=== PATIENT | male | born 1960 | race Caucasian/White ===

== ENCOUNTER 2023-04-30 13:25 | Outpatient (OUT) | payer OTHER, SELFPAY ==
--- NOTE | 2023-04-30 13:30 | CT_ITS ---
[address] [address] Patient Name: SIMONA BALTAZAR MRN: [id number] date: 1960 Sex: M Assigned Patient Location: CT Current Patient Location: CT Accession/Order Number: [id number] Exam Date: 04/30/2023 13:50 Report Date: 04/30/2023 15:57 At the request of: INES ORTIZ Procedure: CT foot RT wo con EXAMINATION: CT foot RT wo con HISTORY: Hallux Rigidus, Right Foot M20.21 ; right first toe pain, no known injury COMPARISON: XR foot right 04/10/2023 TECHNIQUE: Multi-planar CT images were created without IV contrast. Dose reduction techniques were achieved by using automated exposure control and/or adjustment of mA and/or kV according to patient size and/or use of iterative reconstruction technique. FINDINGS: BONES: Marked narrowing of the first metatarsophalangeal joints with near [id number] contact, prominent periarticular degenerative osteophytes, and numerous subchondral cysts. Small corticated ossification distal to the lateral malleolus and several distal to the medial malleolus consistent with sequela of remote injuries. SOFT TISSUES: Scattered mild edema. EFFUSION: None visible. OTHER: Negative. IMPRESSION: 1. Marked degenerative change of first metatarsophalangeal joint favoring osteoarthritis. 2. Scattered small ossifications favoring heterotopic bone formation from remote injuries. Electronically authenticated by: MADALYN CLEANING Date: 04/30/2023 15:57
--- NOTE | 2023-04-30 14:17 | ECG_ITS ---
[facility] Test Date: 2023-04-30 Pat Name: Kushal Oneil Department: Room: - Gender: Male [employer]: : 1960 Requested By: INES ORTIZ Order Number: [id number] Reading MD: MOY LALA Measurements Intervals [place] Rate: 45 P: 60 AL: 216 QRS: 52 QRSD: 108 T: 13 QT: 453 QTc: 396 Interpretive Statements SINUS BRADYCARDIA WITH FIRST DEGREE AV BLOCK WITH OCCASIONAL SUPRAVENTRICULAR PREMATURE COMPLEXES MODERATE INTRAVENTRICULAR CONDUCTION DELAY [105+ ms QRS DURATION, 80+ ms Q/S IN V1/V2, NO Q AND 60+ ms R IN I/aVL/V5/V6] No previous ECG available for comparison Electronically Signed On 05-01-2023 6:38:46 EDT by MOY LALA
--- NOTE | 2023-04-30 14:40 | XR_ITS ---
[address] [address] Patient Name: SIMONA BALTAZAR MRN: [id number] date: 1960 Sex: M Assigned Patient Location: [facility] Current Patient Location: CT Accession/Order Number: [id number] Exam Date: 04/30/2023 15:13 Report Date: 04/30/2023 15:29 At the request of: INES ORTIZ Procedure: XR chest 2V EXAM: XR chest 2V HISTORY: pre op exam/ CAD COMPARISON: None. TECHNIQUE: PA and lateral views of the chest. FINDINGS: The cardiomediastinal silhouette is enlarged. No focal consolidation is identified. There is no pneumothorax. No pleural effusion is noted. The osseous structures are intact. IMPRESSION: Cardiomegaly without overt failure. Electronically authenticated by: NATASHA ALMONTE Date: 04/30/2023 15:29
--- NOTE | 2023-04-30 15:10 | PM.PRESUREVA ---
History of Present Illness History of Present Illness Chief complaint: Hallux valgus right foot CT<PRE TESTING Narrative: Patient presents for preadmission testing. Please see HPI from Dr. Blue dated 04/22/2023. Review of Systems ROS Narrative Please see ROS from Dr. Blue dated 04/22/2023. [facility] Medical History (Updated 04/30/23 @ 14:43 by Malika Andrews NP) Surgical History (Updated 04/30/23 @ 14:43 by Malika Andrews NP) (12/21/18) Family History (Updated 04/30/23 @ 14:43 by Malika Andrews NP) Other CHF (congestive heart failure) Family history of diabetes mellitus Family history of hypertension Family history of lung cancer Family history of myocardial infarction Family history of stroke Social History (Updated 04/30/23 @ 14:35 by Malika Andrews NP) Within the past year, how often did you have a drink containing alcohol: 2-3 times a week Smoking status: Never smoker Previous occupational history: Engraver [employer] Highest level of school completed/degree received: high school graduate Meds Home Medications and Allergies Home Medications Medication Instructions Recorded Confirmed Type amlodipine 10 mg tablet 10 mg PO QDAY 04/30/23 04/30/23 History aspirin 81 mg tablet,delayed 81 mg PO QDAY 04/30/23 04/30/23 History release atorvastatin 20 mg tablet 20 mg PO QDAY 04/30/23 04/30/23 History citalopram 20 mg tablet 20 mg PO QDAY 04/30/23 04/30/23 History ezetimibe 10 mg tablet 10 mg PO QDAY 04/30/23 04/30/23 History metformin 500 mg tablet 500 mg PO QDAY 04/30/23 04/30/23 History metformin 500 mg tablet,extended 500 mg PO QDAY 04/30/23 04/30/23 History release 24 hr metoprolol succinate 100 mg 100 mg PO QDAY 04/30/23 04/30/23 History tablet,extended release 24 hr omeprazole 40 mg capsule,delayed 40 mg PO QDAY 04/30/23 04/30/23 History release Allergies Allergy/AdvReac Type Severity Reaction Status Date / Time No Known Drug Allergies Allergy Verified 04/30/23 14:33 Exam Narrative Exam Narrative: Constitutional: Awake, alert, comfortable, well-appearing, nontoxic, interactive, vital signs as charted Head: Normocephalic, atraumatic Neck: Supple, normal appearance, normal range of motion, no meningeal signs, no lymphadenopathy Respiratory: No respiratory distress, breath sounds clear Cardiovascular: Regular rate and rhythm, strong and regular heart tones Psychiatric: Oriented ?3, normal affect Assessment and Plan Assessment and Plan (1) Hallux rigidus: (2) Hallux valgus: Plan Right 1st metatarsal phalangeal joint fusion with bone graft and soft tissue balancing as needed scheduled with Dr. Blue 05/15/2023.
[2023-04-30 16:12] LABS: Basophils Absolute Auto 0.1 10^3/uL (0.0-0.1); Eosinophils Absolute Auto 0.5 10^3/uL (0.0-0.7); Eosinophils Percent Auto 6.2 % (0.9-7.0); Hematocrit 41.5 % (42.0-54.0); Hemoglobin 13.9 g/dL (14.0-18.0); Immature Granulocytes Abs Auto 0.02 10^3/uL (0.00-0.03); Immature Granulocytes Pct Auto 0.3 % (0.0-0.5); Lymphocytes Absolute Auto 2.1 10^3/uL (1.2-3.8); Lymphocytes Percent Auto 27.6 % (20.5-60.0); Mean Corpuscular HGB Conc 33.5 g/dL (29.9-35.2); Mean Corpuscular Hemoglobin 30.1 pg (25.9-34.0); Mean Corpuscular Volume 89.8 fL (80.0-94.0); Mean Platelet Volume 11.1 fL (9.5-13.5); Monocytes Absolute Auto 0.9 10^3/uL (0.3-0.8); Monocytes Percent Auto 11.5 % (1.7-12.0); Neutrophils Absolute Auto 4.1 10^3/uL (1.4-6.5); Neutrophils Percent Auto 53.4 % (43.0-75.0); Platelet Count 233 10^3/uL (150-450); Red Blood Count 4.62 10^6/uL (4.70-6.10); Red Cell Distribution Width 12.6 % (11.0-15.0); White Blood Count 7.7 10^3/uL (4.0-11.0)
[2023-04-30 16:24] LABS: INR 1.33; Partial Thromboplastin Time 27.7 sec (22.3-36.2); Prothrombin Time 13.9 sec (9.0-11.6)
[2023-04-30 16:54] LABS: BUN Creatinine Ratio 19.5; Calcium 8.8 mg/dL (8.5-10.1); Chloride 103 mmol/L (98-107); Estimated GFR (African America >60 (>=60); Estimated GFR (Non-African Ame >60 (>=60); Glucose 104 mg/dL (74-106); Sodium 140 mmol/L (136-145)
== END 2023-04-30 13:26 ==
LOC: CT 13:25
PROVIDERS: Podiatrist Foot & Ankle Surgery; PCP Family Medicine
DX: Z01.812 Encounter for preprocedural laboratory examination (principal); Z01.818 Encounter for other preprocedural examination; Z01.810 Encounter for preprocedural cardiovascular examination; Z01.811 Encounter for preprocedural respiratory examination; M20.21 Hallux rigidus, right foot; M20.11 Hallux valgus (acquired), right foot; I10 Essential (primary) hypertension; E11.9 Type 2 diabetes mellitus without complications; I25.10 Atherosclerotic heart disease of native coronary artery without angina pectoris; Z79.899 Other long term (current) drug therapy; Z79.82 Long term (current) use of aspirin
CPT/HCPCS: 36415; 71046; 73700; 80048; 85025; 85610; 85730; 93005; G0463

== ENCOUNTER 2023-05-12 14:52 | Outpatient (RCR) | payer OTHER, SELFPAY | END 2023-05-13 11:59 | disposition home or self-care (01) | LOC: PT 14:52 | PROVIDERS: PCP Family Medicine; Visit Provider Physician Assistant | DX: M20.21 Hallux rigidus, right foot (principal); M20.11 Hallux valgus (acquired), right foot; Z98.890 Other specified postprocedural states ==

== ENCOUNTER 2023-05-15 07:12 | Day surgery (SDC) | payer OTHER, SELFPAY ==
[2023-04-30 14:35] VITALS: BP 111/63; PULSE 50; RESP 14; TEMP 36.5; O2SAT 97; BMI 30.2
[2023-05-15] VITALS (8 sets, daily range): BP systolic 119–129; BP diastolic 60–79; PULSE 52–68; RESP 12–18; TEMP 36.1–36.2; O2SAT 94–98; BMI 30.4
--- NOTE | 2023-05-15 | XR_ITS ---
[address] [address] Patient Name: SIMONA BALTAZAR MRN: [id number] date: 1960 Sex: M Assigned Patient Location: [facility] Current Patient Location: [facility] Accession/Order Number: [id number] Exam Date: 05/15/2023 10:44 Report Date: 05/15/2023 17:19 At the request of: INES ORTIZ Procedure: XR foot RT 2V PROCEDURE: XR foot RT 2V COMPARISON: None. HISTORY: RT 1ST MPJ FUSION FINDINGS: BONES:Fusion of the first metatarsal-phalangeal joint with a dorsal plate and multiple screws. Severe underlying degenerative changes. Instability of the ankle joint with asymmetric widening of the lateral and posterior tibiotalar joint with stress SOFT TISSUES:Negative. No visible soft tissue swelling. EFFUSION:None visible. OTHER: Negative. IMPRESSION: Tibiotalar joint instability Stable fusion first metatarsal-phalangeal joint Electronically authenticated by: ARIELLE MAHONEY Date: 05/15/2023 17:19
[2023-05-15 07:22] LABS: Basophils Absolute Auto 0.1 10^3/uL (0.0-0.1); Basophils Percent Auto 1.1 % (0.2-2.0); Eosinophils Absolute Auto 0.6 10^3/uL (0.0-0.7); Eosinophils Percent Auto 6.8 % (0.9-7.0); Hematocrit 42.7 % (42.0-54.0); Hemoglobin 14.3 g/dL (14.0-18.0); Immature Granulocytes Abs Auto 0.01 10^3/uL (0.00-0.03); Immature Granulocytes Pct Auto 0.1 % (0.0-0.5); Lymphocytes Absolute Auto 2.1 10^3/uL (1.2-3.8); Lymphocytes Percent Auto 24.7 % (20.5-60.0); Mean Corpuscular HGB Conc 33.5 g/dL (29.9-35.2); Mean Corpuscular Hemoglobin 29.9 pg (25.9-34.0); Mean Corpuscular Volume 89.1 fL (80.0-94.0); Mean Platelet Volume 10.6 fL (9.5-13.5); Monocytes Absolute Auto 0.9 10^3/uL (0.3-0.8); Monocytes Percent Auto 10.7 % (1.7-12.0); Neutrophils Absolute Auto 4.8 10^3/uL (1.4-6.5); Neutrophils Percent Auto 56.6 % (43.0-75.0); Platelet Count 233 10^3/uL (150-450); Red Blood Count 4.79 10^6/uL (4.70-6.10); Red Cell Distribution Width 12.7 % (11.0-15.0); White Blood Count 8.5 10^3/uL (4.0-11.0)
[2023-05-15] MEDS: LACTATED RINGER'S SOLUTION 1,000 ML 50 ML IV (07:46)
[2023-05-15 07:47] LABS: Glucometer 137 mg/dL (74-106)
--- NOTE | 2023-05-15 08:28 | PC.NURSE ---
PATIENT WAS ATTACHED TO MONITORS ,TIME OUT PERFORMED AT 808 2MG VERSED GIVEN . ADUCTOR AND SCIATIC NERVE BLOCK PERFORMED.PATIENT TOLERATED WELL.
--- NOTE | 2023-05-15 08:46 | PC.NURSE ---
TIME OUT FOR BLOCK STARTED AY 808 AND ENDED AT 820
[2023-05-15] MEDS: CEFAZOLIN SODIUM/DEXTROSE,ISO 2 GM/50 ML PIGGYBACK IV (09:59)
[2023-05-15 12:30] LABS: Glucometer 138 mg/dL (74-106)
--- NOTE | 2023-05-15 12:35 | XR_ITS ---
The [address] [address] Patient Name: SIMONA BALTAZAR MRN: [id number] date: 1960 Sex: M Assigned Patient Location: [facility] Current Patient Location: Accession/Order Number: [id number] Exam Date: 05/15/2023 12:29 Report Date: 05/15/2023 14:02 At the request of: SEDRICK RICO Procedure: XR foot RT min 3V STUDY: XR foot RT min 3V, [id number] HISTORY: post-op COMPARISON: Right foot x-rays 04/10/2023. FINDINGS: Overlying cast material obscures fine bony detail. Status post first metatarsophalangeal joint arthrodesis. The fixation hardware is intact. There are expected postsurgical changes to the soft tissues surrounding the first metatarsophalangeal joint. IMPRESSION: Status post first metatarsophalangeal joint arthrodesis. Electronically authenticated by: ILDEFONSO ROBERT Date: 05/15/2023 14:02
--- NOTE | 2023-05-15 12:47 | P.ORON_ITS ---
Brief Operative Note Date of procedure: 05/15/23 Pre-op diagnosis: right hallux valgus and rigidus, possible AVN Post-op diagnosis: same Procedure: procedures performed: Right 1st metatarsal phalangeal joint fusion with application of short leg splint and intraoperative fluoroscopy examination PROCEDURE IN DETAIL: Patient was identified in pre op and consent was reviewed. Correct side and site were identified and marked. Pre-op antibiotics were started. Patient was brought to OR suite and place on table in a supine position. General anesthesia was administered. A tourniquet was applied. Operative extremity was prepped and draped in usual sterile fashion. Formal time-out was performed and the foot/ankle were exsanguinated and tourniquet inflated. Incision created over dorsal aspect of the 1st MPJ. Bleeders coagulated. EHL protected throughout the procedure. Capsulotomy performed and McGlammry elevator inserted into 1st MPJ. several loose osteophytes were removed with a rongeur .Guide Pin place in 1st metatarsal head. Conical reamers used on 1st metatarsal head to remove cartilage and subchondral bone. It was noted that there was discolored bone consistent with avascular necrosis of the distal most aspect of the 1st metatarsal head. Further reaming was able to excise any questionable bone which also included multiple blood-filled cysts. Reaming of the 1st metatarsal head was performed until bone had a normal appearance. Guide pin removed. Conical reamers used on proximal phalanx and bone was within normal limits. 2.0 mm drill used to on each side of the joint. The site was irrigated. 1 cc of SPARC allograft was placed into the joint space. A stab incision was placed on the medial aspect of the hallux and blunt dissection down to the proximal phalanx base was performed. A guide wire was then used to pin the MPJ in a rectus position under fluoroscopic guidance. Position was checked both on the table and under fluoroscopy. A saw was used to contour the dorsal aspect of the 1st metatarsal and proximal phalanx to accommodate plate fixation. A 3.[address] was place over the fusion site and temporarily fixed. Then blast furnace operator holes were drilled for locking 3.5 mm screws which were measured and placed according to the manufactor's standard directions. Again position was checked under fluoroscopy as well as on the table. Temporary fixation was removed and additional screws were placed. A 4.0 mm cannulated headed screw was inserted over the previously placed guide wire accordingly. Again position of the great toe and hardware placement were checked on the table and under fluoroscopy. The surgical site was irrigated with copious amounts of sterile saline. An additional 1cc of sparc allograft was packed around the fusion site. The incision was then closed in layers. The tourniquet was deflated and a prompt hyperemic response was noted. A dry sterile dressing consisting of Xeroform on the incisions followed by 4 x 4 gauze, ABDs, and Kerlix were applied. Multiple layers of cast padding were then applied to ensure all bony prominences were well-padded. A plaster posterior splint was then applied which was held in place by James wraps. Capillary refill time to all digits was evaluated and had appropriate response. POSTOPERATIVE PLAN: Discharge home under family's care Post op instructions provided verbally and written prescription(s) were placed in chart NWB operative foot/ankle x1 wks Follow-up in 1 week FINDINGS: bone of the distal 1st metatarsal head was avascular and discolored with mixed densities. Reaming achieved excision of all questionable bone which included multiple blood-filled cysts. All remaining bone appeared to be healthy and within normal limits Implants: Medline plate/screws; Sparc allograft Anesthesia: other (Gen. and regional) Surgeon: [employer] Teacher: Antwon Adorno Estimated blood loss (mL): 10 Condition: stable Disposition: PACU Preoperative Details Reason for procedure: patient is a 63-year-old male who presented to my office relating to pain and dysfunction and gradual deformity of his great toe which has slowly increased over the last several years. Pain and dysfunction were now affecting activities of daily living and recreation. He has failed nonsurgical treatment with OTC pain medicine, shoe modification and activity modification. X-rays revealed mild bunion deformity with severe arthrosis. CT scan was also obtained showing mixed sclerotic and cystic bone of the 1st metatarsal head which was concerning for avascular necrosis, in addition to the severe arthritic changes to the joint, however there was no evidence of collapse of the 1st metatarsal head. we discussed the potential risks and benefits of surgical treatment which the patient wished to pursue
--- NOTE | 2023-05-15 12:56 | PC.NURSE ---
right toes pink and warm
--- NOTE | 2023-05-15 13:00 | PC.NURSE ---
right toes pink and warm and numb to touch; extremity elevated and ice placed behind knee
--- NOTE | 2023-05-15 13:04 | PC.NURSE ---
right toes pink and warm and remain numb
--- NOTE | 2023-05-15 13:06 | PC.NURSE ---
right toes pink and warm and remain numb
== END 2023-05-15 13:12 | disposition home or self-care (01) ==
PROVIDERS: PCP Family Medicine; Visit Provider Podiatrist Foot & Ankle Surgery
PROC: (CPT 20900; principal; 2023-05-15 09:10)
DX: M20.11 Hallux valgus (acquired), right foot (principal); M20.21 Hallux rigidus, right foot; I10 Essential (primary) hypertension; E11.9 Type 2 diabetes mellitus without complications; I25.10 Atherosclerotic heart disease of native coronary artery without angina pectoris; M87.874 Other osteonecrosis, right foot; Z79.82 Long term (current) use of aspirin; Z79.84 Long term (current) use of oral hypoglycemic drugs; Z79.899 Other long term (current) drug therapy; E78.00 Pure hypercholesterolemia, unspecified; K21.9 Gastro-esophageal reflux disease without esophagitis; M85.60 Other cyst of bone, unspecified site
CPT/HCPCS: 20900; 28750; 36415; 64445; 73620; 73630; 76000; 76942; 82948; 85025; C1713; J2704

== ENCOUNTER 2023-06-05 13:03 | Outpatient (OUT) | payer OTHER, SELFPAY ==
--- NOTE | 2023-06-05 13:02 | XR_ITS ---
The [address] [address] Patient Name: SIMONA BALTAZAR MRN: [id number] date: 1960 Sex: M Assigned Patient Location: [facility] Current Patient Location: Accession/Order Number: [id number] Exam Date: 06/05/2023 13:01 Report Date: 06/06/2023 07:27 At the request of: KAT SEVILLA Procedure: XR foot RT min 3V PROCEDURE: XR foot RT min 3V COMPARISON: 05/15/2023 HISTORY: RIGHT FOOT PAIN FINDINGS: BONES:Stable fusion first metatarsal-phalangeal joint with a dorsal plate and multiple screws. There is heterogeneous lytic appearance along the lateral base of the first proximal phalanx possibly lytic phase of healing but indeterminate. No acute fracture or dislocation. SOFT TISSUES:Negative. No visible soft tissue swelling. EFFUSION:None visible. OTHER: Negative. XR/XR foot RT min 3V IMPRESSION: First metatarsal-phalangeal joint fusion with lytic changes to the base of the first proximal phalanx Electronically authenticated by: ARIELLE MAHONEY Date: 06/06/2023 07:27
== END 2023-06-05 13:04 | disposition home or self-care (01) ==
LOC: RAD 13:03
PROVIDERS: PCP Family Medicine; Visit Provider Physician Assistant
DX: M20.21 Hallux rigidus, right foot (principal)
CPT/HCPCS: 73630

== ENCOUNTER 2023-06-25 14:50 | Outpatient (OUT) | payer OTHER, SELFPAY ==
--- NOTE | 2023-06-25 14:53 | XR_ITS ---
The [address] [address] Patient Name: SIMONA BALTAZAR MRN: [id number] date: 1960 Sex: M Assigned Patient Location: [facility] Current Patient Location: [facility] Accession/Order Number: [id number] Exam Date: 06/25/2023 14:53 Report Date: 06/25/2023 15:16 At the request of: INES ORTIZ Procedure: XR foot RT min 3V PROCEDURE: XR foot RT min 3V DATE: 06/25/2023 1:53 PM CDT COMPARISONS: 06/05/2023 CLINICAL INDICATION: RIGHT FOOT PAIN FINDINGS: There is no evidence of fractures or other acute osseous abnormalities. Postop fusion of the first metatarsal phalangeal joint is again identified. Surgical hardware is intact, stable from previous exam Mild interphalangeal degenerative changes again identified, stable. XR/XR foot RT min 3V IMPRESSION: Right foot radiographs show no evidence of acute abnormalities. First metatarsal phalangeal postop changes are stable. Electronically authenticated by: LUIS ALBERTO NEW Date: 06/25/2023 15:16
== END 2023-06-25 14:51 | disposition home or self-care (01) ==
LOC: RAD 14:50
PROVIDERS: PCP Family Medicine; Visit Provider Podiatrist Foot & Ankle Surgery
DX: M20.21 Hallux rigidus, right foot (principal)
CPT/HCPCS: 73630

== ENCOUNTER 2023-08-05 14:44 | Outpatient (OUT) | payer OTHER, SELFPAY ==
--- NOTE | 2023-08-05 | XR_ITS ---
The [address] [address] Patient Name: SIMONA BALTAZAR MRN: [id number] date: 1960 Sex: M Assigned Patient Location: [facility] Current Patient Location: [facility] Accession/Order Number: [id number] Exam Date: 08/05/2023 15:47 Report Date: 08/06/2023 09:10 At the request of: KAT SEVILLA Procedure: XR foot RT min 3V PROCEDURE: XR foot RT min 3V HISTORY: RIGHT FOOT PAIN COMPARISON: XR foot right 06/25/2023 FINDINGS: BONES:Mechanical fusion of the first metatarsophalangeal joint via dorsal plate and screws. No hardware fracture or loosening. No bone fracture or dislocation. Stable tiny ossifications lateral to the base of the fifth metatarsal; likely sequela of remote injury. SOFT TISSUES:Mild distal dorsal soft tissue swelling. EFFUSION:None visible. OTHER: Negative. XR/XR foot RT min 3V IMPRESSION: 1. Stable surgical changes without evidence of hardware failure or change in alignment. 2. No appreciable acute abnormality. Electronically authenticated by: MADALYN CLEANING Date: 08/06/2023 09:10
== END 2023-08-05 14:45 | disposition home or self-care (01) ==
LOC: RAD 14:44
PROVIDERS: PCP Family Medicine; Visit Provider Physician Assistant
DX: M20.21 Hallux rigidus, right foot (principal)
CPT/HCPCS: 73630

== ENCOUNTER 2023-11-18 14:56 | Outpatient (OUT) | payer OTHER, SELFPAY ==
--- NOTE | 2023-11-18 | XR_ITS ---
[address] [address] Patient Name: SIMONA BALTAZAR MRN: [id number] date: 1960 Sex: M Assigned Patient Location: [facility] Current Patient Location: Accession/Order Number: [id number] Exam Date: 11/18/2023 15:00 Report Date: 11/19/2023 08:27 At the request of: KAT SEVILLA Procedure: XR foot RT min 3V PROCEDURE: XR foot RT min 3V COMPARISON: 08/05/23 HISTORY: RIGHT FOOT F/U IMAGING FINDINGS: BONES:Fusion of first metatarsal-phalangeal joint with a dorsal plate and screws. No acute fracture, dislocation or mechanical failure. Mild enthesopathic spurring of the calcaneus. SOFT TISSUES:Negative. No visible soft tissue swelling. EFFUSION:None visible. OTHER: Negative. XR/XR foot RT min 3V IMPRESSION: Stable first metatarsal-phalangeal joint fusion Electronically authenticated by: ARIELLE MAHONEY Date: 11/19/2023 08:27
== END 2023-11-18 14:57 | disposition home or self-care (01) ==
LOC: RAD 14:56
PROVIDERS: PCP Family Medicine; Visit Provider Physician Assistant
DX: M20.21 Hallux rigidus, right foot (principal)
CPT/HCPCS: 73630